=== PATIENT | female | born 1965 | race Caucasian/White ===

== ENCOUNTER 2017-02-03 11:22 | Day surgery (SDC) | payer OTHER ==
[2017-02-03] VITALS (12 sets, daily range): BP systolic 99–149; BP diastolic 51–74; PULSE 86–102; RESP 12–28; Ht 154.9 cm; Wt 59.4 kg
[~2017-02-03] VITALS: Ht 154.9 cm; Wt 59.4 kg
[~2017-02-03 11:22] MED LIST: CEFAZOLIN 1 GM INJ ONE
[2017-02-03] MEDS ORDERED: POVIDONE IODINE 10% 28.4 GM OINT ONE (12:46)
[2017-02-03] MEDS ORDERED: BUPIVACAINE 0.5% (SDV) 30 ML INJ ONE (12:46)
[2017-02-03] MEDS ORDERED: METOCLOPRAMIDE 10 MG INJ IV PRN (13:00)
[2017-02-03] MEDS ORDERED: OXYCODONE/ACETAMINOPHEN (5/325) TAB PO PRN ×2 (13:00)
[2017-02-03] MEDS ORDERED: ONDANSETRON 4 MG INJ IV PRN (13:00)
[2017-02-03] MEDS ORDERED: FENTAnyl 50 MCG/ML VIAL IV PRN ×3 (13:00)
--- NOTE | 2017-02-03 13:00 | HPN ---
Date/Time of Note Date/Time of Note DATE: 02/03/17 TIME: 13:00 Interval H&P Admission Note Pt. seen H&P reviewed: No system changes HELDER GEE DPM Feb 03, 2017 13:00
[2017-02-03] MEDS ORDERED: MIDAZOLAM 1 MG/ML 2 ML INJ ONE (13:01)
[2017-02-03] MEDS ORDERED: PROPOFOL 20 ML ONE (13:01)
[2017-02-03] MEDS ORDERED: LIDOCAINE 2% (SDV) 5 ML INJ ONE (13:01)
[2017-02-03] MEDS ORDERED: ROCURONIUM 50 MG INJ ONE (13:01)
[2017-02-03] MEDS ORDERED: PHENYLephrine (100 MCG/ML) 5ML SYG ONE (13:02)
[2017-02-03] MEDS ORDERED: FENTAnyl 50 MCG/ML VIAL ONE (13:02)
[2017-02-03] MEDS ORDERED: ONDANSETRON 4 MG INJ ONE (13:41)
[2017-02-03] MEDS ORDERED: DEXAMETHASONE 4 MG/ML 1 ML INJ ONE (13:42)
[2017-02-03] MEDS ORDERED: HYDROmorphONE 2 MG/ML SYG ONE (13:44)
[2017-02-03] MEDS ORDERED: ACETAMINOPHEN 1000MG/100ML IV 100 ML ONE (13:44)
[2017-02-03] MEDS ORDERED: SUGAMMADEX SODIUM 200 MG/2 ML VIAL IV ONE (14:33)
--- NOTE | 2017-02-03 14:48 | SIPON ---
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
--- NOTE | 2017-02-03 16:20 | PREOPHP ---
DATE OF ADMISSION: 02/03/2017 HISTORY OF PRESENT ILLNESS: The patient is being admitted to the hospital for elective foot surgery. Palliative treatment unsuccessful. The patient has been explained her surgery, complications, alternatives, and elected to have elective foot surgery. The patient points to her bunion on her left foot. ALLERGIES: PATIENT DENIES ANY ALLERGIES. MEDICATIONS: Renee. REVIEW OF SYSTEMS: Negative heart, lung, liver, kidney, or thyroid. Negative diabetes and negative smoking or alcohol. PHYSICAL EXAMINATION: See any other pertinent history, upper extremity physical exam by [facility]. LOWER EXTREMITY: Shows DP and PT equal and regular. Neurological negative for pathology. Dermatological negative for pathology. Musculoskeletal show a hallux abductovalgus with bunion deformity, left foot. FINAL DIAGNOSIS: Hallux abductovalgus with bunion deformity, left foot. Dictated By: Zander Huerta DPM /[email or web address] /Document#: [id number] ALEXANDR
--- NOTE | 2017-02-03 19:17 | OPR ---
DATE OF OPERATION: 02/03/2017 PREOPERATIVE DIAGNOSIS: Hallux abductovalgus with bunion deformity, left foot. POSTOPERATIVE DIAGNOSIS: Hallux abductovalgus with bunion deformity, left foot. OPERATIVE PROCEDURE: Osteotomy and bunionectomy with fixation 1st metatarsal left foot, Sam osteotomy with fixation proximal phalanx hallux, left foot, and application of a EpiFix. SURGEON: Zander Huerta DPM PROCEDURE IN DETAIL: Patient was brought to the surgical suite, placed in the supine position. Patient had a sterile prep and drape, and the findings consistent with the pre- and postop diagnosis. The tourniquet was at the height of the ankle and the first incision was a dorsal medial longitudinal incision over the 1st metatarsophalangeal joint. Using sharp and blunt dissection, the incision was carried deep. The Bovie was used as necessary. A longitudinal capsulotomy was made and the head of the 1st metatarsal was freed of its attachment and resected on the medial aspect using sharp and blunt dissection. It was then freed and the horizontal osteotomy was made with the apex distal and the base proximal, centered at the head of the 1st metatarsal. The pegs going proximal were at 60 degrees to each other. They were through and through, and the head of the 1st metatarsal was moved laterally, impacted upon the shaft, the overhang of the shaft was resected and then a K-wire was placed through the osteotomy site and the area was then measured and a 14 x 2.5 mm headless screw by [email or web address] was placed and screwed into place. The area was then rasped smooth. Attention was now turned to the proximal phalanx where an Sam osteotomy with the apex laterally and the base medially made an approximately 3 mm at its widest point was performed. The shaft of the proximal phalanx and then the distal part was then impacted on the proximal part and an 8 x 8 staple by [email or web address] was then used to fixate that part. The area was cleansed. The preoperative condition having been relieved. EpiFix was then applied to the medial aspect of the 1st metatarsal and the area was subcutaneously coapted using 3-0 Dexon, and the skin was coapted using 5-0 nylon. The incision was injected with 0.5 percent Marcaine to prolong anesthesia and a dressing of 0.5 inch Steri-Strips, Betadine ointment and 4x4s impregnated with Betadine solution and Yancy with an outer layer of Coban made into a semi-compressive dressing. The patient tolerated surgery well and was returned to recovery room in satisfactory condition. Dictated By: Zander Huerta DPM /[email or web address] /Document#: [id number] MTDPerla
== END 2017-02-03 17:20 | disposition home or self-care (01) ==
LOC: SDS 11:22
PROVIDERS: ATTEND Podiatrist
DX: M20.12 Hallux valgus (acquired), left foot (principal); M21.612 Bunion of left foot; E78.5 Hyperlipidemia, unspecified
CPT/HCPCS: 28299; 84703; 88304; 88311; J0131; J0690; J1100; J1170; J2250; J2405; J3010; Z7512; Z7610; J2370